=== PATIENT | female | born 1995 | race Caucasian/White ===

== ENCOUNTER 2016-09-15 11:05 | Emergency (ER) | payer MEDICAID ==
--- NOTE | 2016-09-15 12:13 | PD ---
HPI Chief Complaint decreased movement Date Seen: Sep 15, 2016 Time Seen: 11:30 (Baron Loo MD R2) Travel History International Travel<30 Days: No Contact w/Intl Traveler<30Days: No Known Affected Area: No (Baron Loo MD R2) History of Present Illness HPI 21 year old G1 at 25/1 weeks gestation presents with decreased movement that started yesterday. She worked 10 hours yesterday and did not notice any kicks. Today she has not noticed any kicks. She has no vaginal bleeding, loss of fluid, or contractions. has been uncomplicated otherwise. No headache, blurry vision, chest pain, shortness of breath, abdominal pain, calf tenderness. (Baron Loo MD) History Past Medical History Narrative Medical None (Baron Loo MD) Obstetric History Obstetric History G1 25/1 weeks gestation Patient of Dr. Lynn No complications (Baron Loo MD R2) Family History Narrative Family History Healthy (Baron Loo MD) Social History Narrative Social History No drinking, drug use, smoking (Baron Loo MD R2) Allergies-Medications (Allergen,Severity, Reaction): Coded Allergies: No Known Allergies (Unverified , 09/15/16) Narrative Medication vitamins (Baron Loo MD R2) Review of Systems General / Constitutional: Weight Gain, No: Fever, Weight Loss, Chills Eyes: No: Diploplia, Blurred Vision, Visual changes HENT: No: Headaches, Vertigo Cardiovascular: No: Irregular Rhythm, Chest Pain or Discomfort, Tachycardia, Syncope Respiratory: No: Cough, Short of Breath, Wheezing Gastrointestinal: No: Nausea, Vomiting, Diarrhea, Abdominal Pain Genitourinary: No: Urgency, Frequency, Dysuria, Nocturia Musculoskeletal: No: Limited ROM, Weakness Skin: No Rash, No Itching, No Dryness Neurologic: No: Weakness, Dizziness Psychiatric: No: Anxiety, Depression Endocrine: No: Heat Intolerance, Cold Intolerance (Baron Loo MD R2) Physical Exam Narrative GENERAL: Well-nourished, well-developed patient. SKIN: Warm and dry. HEAD: Normocephalic and atraumatic. EYES: No scleral icterus. No injection or drainage. ENT: No nasal drainage noted. Mucous membranes pink. Airway patent. NECK: Supple, trachea midline. No JVD. CARDIOVASCULAR: Regular rate and rhythm without murmurs, gallops, or rubs. RESPIRATORY: Breath sounds equal bilaterally. No accessory muscle use. ABDOMEN/GI: Abdomen soft, non-tender, bowel sounds present, no rebound, no guarding Gravid to 25 weeks size GENITOURINARY: Uterine Contractions: none FHT's: Category: 1 Baseline: 140's Reactive: yes Variability: moderate Decels: none EXTREMITIES: No cyanosis or edema. BACK: Nontender without obvious deformity. No CVA tenderness. NEUROLOGICAL: Awake and alert. Motor and sensory grossly within normal limits. Five out of 5 muscle strength in all muscle groups. Normal speech. (Baron Loo MD R2) Data Data Vital Signs Reviewed: Yes Orders Vital Signs (Adult) .ON ADMISSION (09/15/16 12:01) ^ Labor Status (09/15/16 12:01) Urinalysis - C+S If Indicated (09/15/16 12:01) ^ Non Stress Test (09/15/16 12:01) ^ Hydration (09/15/16 12:01) Diet Regular Basic (09/15/16 Lunch) Vital Signs (Adult) .ON ADMISSION (09/15/16 12:03) ^ Non Stress Test (09/15/16 12:03) ^ Hydration (09/15/16 12:03) (Baron Loo MD R2) MDM Medical Record Reviewed: Yes Interpretation(s) 21 year old G1 at 25/1 weeks gestation with decreased movements. - Non-stress test, monitoring - Hydration - Instructions on kick counts - BPP, NST's if not improved - Close follow up with OB Discussed with Dr. Orlando Narrative Course / MDM 21 year old G1 at 25/1 weeks gestation with decreased movements. NST reactive, POC ultrasound benign. - Instructions on kick count - NST's, BPP's if decreased movement persists - Close follow up with OB (Baron Loo MD R2) Diagnosis Diagnosis: Primary Impression: Decreased movement affecting management of Disposition: 01 DISCHARGE HOME Condition: Good Attestation Patient seen and examined with the resident under direct supervision, agree with the assessment and plan. (Allan Marsh MD) Baron Loo MD R2 Sep 15, 2016 12:13 Allan Marsh MD Sep 15, 2016 17:45
[2016-09-15 12:28] LABS: BACTERIA, URINE FEW /hpf; BLOOD, URINE NEG (NEG); COMMENT (UR) CULT NOT INDICATED; CULTURE IF INDICATED CULT NOT INDICATED; GLUCOSE,URINE NEG (NEG); KETONE, URINE NEG (NEG); MUCUS URINE FEW /lpf (OCC); NITRITE,URINE NEG (NEG); PH, URINE 7.5 (5.0-8.5); SQUAMOUS EPITHELIAL CELL URINE 4 /hpf (0-5); URINE COLOR LIGHT-YELLOW (YELLW/STRAW)
== END 2016-09-15 13:08 | disposition home or self-care (01) ==
LOC: HOBED 11:05
DX: O36.8120 Decreased fetal movements, second trimester, not applicable or unspecified (principal); Z3A.25 25 weeks gestation of pregnancy
CPT/HCPCS: 76815; 81001

== ENCOUNTER → 2016-11-04 | Outpatient (CLI) | payer MEDICAID ==
[~2016-11-04] MED LIST: IBUP-232 PO; PREN29TA PO
== END ==
LOC: HPND 08:58
PROVIDERS: ATTEND Obstetrics & Gynecology
DX: O35.8XX0 Maternal care for other (suspected) fetal abnormality and damage, not applicable or unspecified (principal)
CPT/HCPCS: 76811

== ENCOUNTER 2016-12-08 10:55 | Emergency (ER) | payer MEDICAID ==
--- NOTE | 2016-12-08 11:17 | PD ---
HPI Chief Complaint decreased movement Date Seen: Dec 08, 2016 (Charly Phillips MD R2) Travel History International Travel<30 Days: No Contact w/Intl Traveler<30Days: No (Charly Phillips MD R2) History of Present Illness HPI Ms. Meredith is a 21 yo 37 [address] G[address] patient of [address] Lynn at 37 1/7 weeks (SELINA 2016) who presents with complaint of decreased movement. Patient states that she has only been able to feel her gestation move one time at approximately 8 AM this morning; she is subsequently been resting and performing kick counts but states she has not felt movement. Patient otherwise denies complaints at this time. She reports occasional [place] contractions. Patient denies vaginal bleeding or loss of vaginal fluid. Patient does not report chest pain, shortness of breath, nausea/vomiting, dysuria, fever/chills home or other symptoms at this time. Patient reports benign history with exception of R hydronephrosis early in which has subsequently resolved (per patient's last ultrasound, 11/04/2016). GBS negative Para: 0 : 1 (Charly Phillips MD R2) History Past Medical History Medical History: Denies Significant Hx (Charly Phillips MD R2) Obstetric History Obstetric History G1 Right hydronephrosis early which subsequently resolved (Charly Phillips MD R2) Past Surgical History Surgical History: No Previous Surgery (Charly Phillips MD R2) Family History Family History: Negative (Charly Phillips MD R2) Social History Alcohol Use: No Tobacco Use: No Substance Abuse: No (Charly Phillips MD R2) Allergies-Medications (Allergen,Severity, Reaction): Coded Allergies: No Known Allergies (Unverified , 09/15/16) Review of Systems General / Constitutional: No: Fever, Chills Cardiovascular: No: Chest Pain or Discomfort Respiratory: No: Short of Breath Gastrointestinal: No: Abdominal Pain Genitourinary: No: Dysuria (Charly Phillips MD R2) Physical Exam T 98.4 RRR 17 BP 123/73 HR 87 Narrative GENERAL: Well-nourished, well-developed patient. SKIN: Warm and dry. HEAD: Normocephalic and atraumatic. EYES: No scleral icterus. No injection or drainage. ENT: No nasal drainage noted. Mucous membranes pink. Airway patent. NECK: Supple, trachea midline. No JVD. CARDIOVASCULAR: Regular rate and rhythm without murmurs. No LE edema, normal peripheral perfusion RESPIRATORY: CTAB, normal rate ABDOMEN/GI: Abdomen soft, non-tender, bowel sounds normal. Gravid EXTREMITIES: No cyanosis or edema. NEUROLOGICAL: Awake and alert. Motor and sensory function grossly within normal limits. Uterine Contractions: none, occ irritability FHT's: Category: 1 Baseline: 130 Reactive: Y Variability: Mod Decels:None (Charly Phillips MD R2) [facility] Medical Record Reviewed: Yes Interpretation(s) 21 yo 37 yo G1 patient of [address] Lynn at 37 1/7 weeks (SELINA 12/28/2016) Assessment: -Decreased movement x2-3 hrs -Unremarkable history (hydronephrosis early, resolved) -No contractions on CTG -FHR detected on EFM Plan: -Will continue CTG x20 minutes; based on results we'll reassure patient or assess further with US Narrative Course / MDM CTG was monitored for 30 minutes; heart rhythm reassuring: category 1, baseline 130 with accelerations, moderate variability Impression: Reassuring CTG x >20 min in patient with benign course very reassuring. -Patient reassured regarding stability of her fetus' status; she will continue to monitor kick counts at home and follow up with Dr. Lynn next Monday Case and EFM reviewed with Dr. Hernandez (Charly Phillips MD R2) Diagnosis Diagnosis: Primary Impression: 37 weeks gestation of Additional Impression: Maternal care for decreased movements, antepartum Disposition: 01 DISCHARGE HOME Condition: Stable Patient Instructions: Movement (ED), General Instructions Collaborating MD Comments Patient seen and discussed with Dr Phillips. Agree with management. (Erendira Hernandez MD) Charly Phillips MD R2 Dec 08, 2016 11:17 Erendira Hernandez MD Dec 08, 2016 13:44
== END 2016-12-08 11:58 | disposition home or self-care (01) ==
LOC: HOBED 10:55
DX: O36.8130 Decreased fetal movements, third trimester, not applicable or unspecified (principal); Z3A.37 37 weeks gestation of pregnancy
CPT/HCPCS: 59025

== ENCOUNTER 2016-12-13 22:10 | Inpatient (IN) | payer MEDICAID ==
[~2016-12-13] VITALS: Ht 160 cm; Wt 87.5 kg
[2016-12-13 22:42] VITALS: TEMP 98.6
[2016-12-13 22:50] VITALS: BP 111/64; PULSE 74
[2016-12-13 23:00] VITALS: RESP 18
[2016-12-13] MEDS ORDERED: ZOLPIDEM TARTRATE 5 MG TAB PO PRN (23:00)
[2016-12-13] MEDS ORDERED: NS 1000 ML OTHER PRN (23:00)
[2016-12-13] MEDS ORDERED: MISOPROSTOL 25 MCG SUPP - repeat dose VAGINAL PRN (23:00)
[2016-12-13] MEDS ORDERED: MISOPROSTOL 25 MCG SUPP VAGINAL ONE (23:00)
[2016-12-13] MEDS ORDERED: NS 1000 ML IV PRN (23:15)
[2016-12-13] MEDS ORDERED: LIDOCAINE HCL 1% 50 ML VIAL INFIL PRN (23:15)
[2016-12-13] MEDS ORDERED: LIDOCAINE HCL 1% 50 ML VIAL I-DERMAL PRN (23:15)
[2016-12-13] MEDS ORDERED: OXYTOCIN 30 UNITS 500ML PREMIX IV ONE (23:15)
[2016-12-13] MEDS ORDERED: LACTATED RINGER'S 1000 ML BOLUS IV PRN (23:15)
[2016-12-13] MEDS ORDERED: CITRIC ACID-SODIUM CITRATE LIQ 30 ML UDC PO SCH (23:15)
[2016-12-13] MEDS ORDERED: MINERAL OIL 10 ML VIAL TOPICAL PRN (23:15)
[2016-12-13] MEDS ORDERED: NS 500 ML BOLUS IV PRN (23:15)
[2016-12-13 23:30] LABS: AUTOMATED NEUTROPHIL # 9.2 TH/MM3 (1.8-7.7); BASOPHIL % 0.3 % (0.0-2.0); EOSINOPHIL # 0.1 TH/MM3 (0-0.4); HEMATOCRIT 33.8 % (35.0-46.0); HEMO FLAGS DIFF FINAL; LYMPH % 19.3 % (9.0-44.0); LYMPHOCYTE # 2.5 TH/MM3 (1.0-4.8); MEAN CELL VOLUME 88.4 FL (80.0-100.0); MEAN CORPUSCULAR HEMOGLOBIN 30.7 PG (27.0-34.0); MEAN CORPUSCULAR HGB CONC 34.8 % (32.0-36.0); MONO % 8.4 % (0.0-8.0); PLATELET COUNT 249 TH/MM3 (150-450); RED BLOOD COUNT 3.82 MIL/MM3 (4.00-5.30); RED CELL DISTRIBUTION WIDTH 13.9 % (11.6-17.2)
[2016-12-13] MEDS: LACTATED RINGER'S 1000 ML INJ 1,000 ML IV SCH (23:30)
[2016-12-13 23:37] LABS: BACTERIA, URINE OCC /hpf; BLOOD, URINE MOD (NEG); COMMENT (UR) CULTURE INDICATED; CULTURE IF INDICATED CULTURE INDICATED; GLUCOSE,URINE NEG (NEG); KETONE, URINE NEG (NEG); MUCUS URINE FEW /lpf (OCC); NITRITE,URINE NEG (NEG); SQUAMOUS EPITHELIAL CELL URINE 7 /hpf (0-5); URINE COLOR YELLOW (YELLW/STRAW)
[2016-12-13 23:45] LABS: ANION GAP 12 MEQ/L (5-15); AST (GOT) 18 U/L (15-37); BLOOD UREA NITROGEN 10 MG/DL (7-18); CHLORIDE 106 MEQ/L (98-107); GLOMERULAR FILTRATION RATE 126 ML/MIN (>89); POTASSIUM 3.6 MEQ/L (3.5-5.1); SODIUM (NA) 139 MEQ/L (136-145)
[2016-12-13 23:49] LABS: ALKALINE PHOSPHATASE 140 U/L (45-117); ALT (GPT) 24 U/L (10-53); TOTAL BILIRUBIN ADULT 0.2 MG/DL (0.2-1.0); URIC ACID 4.1 MG/DL (2.6-6.0)
[2016-12-14] VITALS (61 sets, daily range): BP systolic 72–145; BP diastolic 35–95; PULSE 53–168; RESP 16–18; TEMP 97.8–98.7; O2SAT 96–100
[2016-12-14] MEDS: LACTATED RINGER'S 1000 ML IV SCH ×2 (03:29→07:15)
[2016-12-14] MEDS ORDERED: OXYTOCIN 30 UNITS/NS 500ML PREMIX IV SCH (04:00)
[2016-12-14] MEDS: LACTATED RINGER'S 1000 ML INJ 1,000 ML IV SCH (07:29)
[2016-12-14] MEDS ORDERED: PREN29TA PO (08:29)
--- NOTE | 2016-12-14 08:48 | MH ---
cc: ROSA ELENA LYNN DATE OF ADMISSION: 12/13/2016 HISTORY OF PRESENT ILLNESS Ms. Meredith is a 21-year-old white female para 0-0-0-0 at 37+ weeks. She presented to the office for a routine OB visit. She had a 4-pound weight gain in one week. Her blood pressure was increased. Her reflexes were very brisk and she had +1 to +2 proteinuria. Her cervix is really not inducible so she was put in last night for a cervical ripening. I discussed the risks and benefits and alternatives, we got pre-eclamptic labs and she is being admitted for induction of labor due to preeclampsia, mild. PAST OB HISTORY She is para 0-0-0. PAST MEDICAL HISTORY Negative. 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 Her Pap smear was not done secondary to her age. PAST SURGICAL HISTORY Negative. SOCIAL HISTORY She is single, never a smoker. Does not drink, does not take drugs. FAMILY HISTORY Colon cancer in her grandfather and an uncle had brain cancer. ALLERGIES No known drug allergies. CURRENT MEDICATIONS vitamins. PHYSICAL EXAMINATION GENERAL: On physical exam, a well-developed, well-nourished female in no acute distress. VITAL SIGNS: Her blood pressure is 146/96. Her weight is 193. HEENT: Normocephalic, atraumatic. NECK: Supple. Trachea is in the midline. No thyromegaly or adenopathy. CHEST: Clear to auscultation. HEART: Regular rate and rhythm without murmur. ABDOMEN: The abdomen is gravid, nontender. PELVIC EXAM: Her cervix is fingertip, 30% effaced, -3, soft, posterior. EXTREMITIES: No clubbing, cyanosis, edema. DTRs are +3 and quite brisk. ASSESSMENT AND PLAN 1. Intrauterine at 37 weeks and 6 days. 2. Preeclampsia with a non-inducible cervix. We will go ahead and put her in for cervical ripening. 3. Her GBS is negative. R. Rosa Elena Lynn MD RJV/TRAVIS /8:24 AM /8:35 AM
[2016-12-14] MEDS ORDERED: ONDANSETRON HCL 4 MG/2 ML VIAL ONE (09:17)
[2016-12-14] MEDS ORDERED: fentaNYL 2MCG-BUPIV 0.125% INJ 100 ML ONE (09:36)
[2016-12-14] MEDS ORDERED: ePHEDrine/NS 25 MG/5 ML SYR ONE (09:37)
[2016-12-14] MEDS ORDERED: ONDANSETRON HCL 4 MG/2 ML VIAL IV PUSH ONE (09:45)
[2016-12-14] MEDS ORDERED: ONDANSETRON HCL 4 MG/2 ML VIAL IV PUSH PRN (09:45)
[2016-12-14] MEDS ORDERED: DIPHTH/TETANUS/ACEL PERTUSSIS (BOOSTER) 0.5 ML VIAL/PFS IM ONE (16:00)
[2016-12-14] MEDS ORDERED: MEASLES, MUMPS, RUBELLA VACCINE 0.5 ML VIAL SQ ONE (16:00)
--- NOTE | 2016-12-14 16:18 | PD.OB.DELI ---
Delivery Date: Dec 14, 2016 Anesthesia: Epidural Episiotomy: None Vaginal Delivery: Normal Presentation: Occiput anterior Nuchal Cord: None Delayed cord clamping (45 sec): Yes Infant: Male One Minute : 9 Five Minute : 9 Placenta: Spontaneous delivery, Intact, Not Intact, 3 vessel cord Laceration: Perineal laceration, 2 deg Repair: Vicryl running Additional Information Nice delivery of Charanjit. Does have pre eclampsia but will hold off on the magnesium for now as it is mild Discussed this with patient and family. EBL 300cc Annette Lynn MD Dec 14, 2016 16:18
[2016-12-14] MEDS ORDERED: SODIUM CHLORIDE 0.9% FLUSH 10 ML FLUSH IV FLUSH PRN (16:30)
[2016-12-14] MEDS ORDERED: BENZOCAINE 20% TOPICAL SPRAY 60 ML CAN TOPICAL PRN (16:30)
[2016-12-14] MEDS ORDERED: ZOLPIDEM TARTRATE 5 MG TAB PO PRN (16:30)
[2016-12-14] MEDS ORDERED: OXYTOCIN 30 UNITS-500ML PREMIX 500 ML IV ONE (16:30)
[2016-12-14] MEDS ORDERED: oxyCODONE/ACETAMINOPHEN 5 MG/325 MG TAB PO PRN ×2 (16:30)
[2016-12-14] MEDS ORDERED: ALUMINUM/MAGNESIUM/SIMETH 30 ML CUP PO PRN (16:30)
[2016-12-14] MEDS ORDERED: WITCH HAZEL 50%/GLYCERIN 12.5% 40 PAD JAR TOPICAL PRN (16:30)
[2016-12-14] MEDS ORDERED: ACETAMINOPHEN 325 MG TAB PO PRN (16:30)
[2016-12-14] MEDS ORDERED: DOCUSATE SODIUM 50 MG/SENNA 8.6 MG TAB PO PRN (16:30)
[2016-12-14] MEDS ORDERED: ONDANSETRON ODT 4 MG TAB PO PRN (16:30)
[2016-12-14] MEDS: IBUPROFEN 600 MG TAB PO PRN (17:05)
[2016-12-14] MEDS ORDERED: SODIUM CHLORIDE 0.9% FLUSH 10 ML FLUSH IV FLUSH SCH (21:00)
[2016-12-15] MEDS: IBUPROFEN 600 MG TAB PO PRN ×3 (04:24→18:09)
[2016-12-15] MEDS ORDERED: IBUP-232 PO (08:10)
--- NOTE | 2016-12-15 08:11 | HHI.DCPOC ---
Discharge Care Plan Diagnosis: (1) Pre-eclampsia affecting , antepartum (2) Vaginal delivery Report Symptoms to Your Doctor -Temperate above 100.5 degrees -Redness, of incision or excessive or foul smelling drainage -Unusual pain or calf pain -Increased vaginal bleeding -Painful or difficulty urinating -Feelings of extreme sadness or anxiety after 2 weeks Goals to Promote Your Health * To prevent worsening of your condition and complications * To maintain your health at the optimal level Directions to Meet Your Goals Take your medications as prescribed Follow your dietary instruction Follow activity as directed Ensure plenty of rest for recovery Drink fluids for hydration Keep your appointments as scheduled Take your immunizations and boosters as scheduled If your symptoms worsen call your PCP, if no PCP go to Urgent Care Center or Emergency Room Smoking is Dangerous to Your Health. Avoid second hand smoke Call the 24-hour crisis hotline for domestic abuse at Annette Lynn MD Dec 15, 2016 08:11
[2016-12-15] MEDS ORDERED: MULTIVIT/MIN/PREN/FOL AC/IRON PRENATAL TAB PO SCH (09:00)
--- NOTE | 2016-12-15 09:09 | HHI.OB ---
Subjective Post Day: 1 Objective Vitals/I&O Vital Signs Date Time Temp Pulse Resp B/P Pulse Ox O2 Delivery O2 Flow Rate FiO2 12/14/16 19:45 98.7 81 16 111/55 96 12/14/16 18:30 97.9 81 16 115/65 12/14/16 17:30 101/85 12/14/16 17:16 79 12/14/16 17:11 16 12/14/16 17:01 85 111/53 12/14/16 16:51 18 12/14/16 16:49 82 114/58 12/14/16 16:34 16 12/14/16 16:33 88 100/62 12/14/16 16:32 122 12/14/16 16:30 18 12/14/16 16:16 71 113/73 12/14/16 16:15 18 12/14/16 16:15 98.2 12/14/16 16:00 168 132/79 12/14/16 15:15 53 127/80 12/14/16 15:01 66 124/56 12/14/16 14:46 82 120/76 12/14/16 14:30 65 115/78 12/14/16 14:16 69 95/55 12/14/16 14:05 102/64 12/14/16 14:05 69 12/14/16 14:02 81 72/35 12/14/16 14:00 97.8 12/14/16 13:46 69 108/65 12/14/16 13:31 65 111/58 12/14/16 13:15 69 115/75 12/14/16 13:01 66 100/82 12/14/16 12:53 98.0 16 12/14/16 12:46 72 119/68 12/14/16 12:30 65 118/67 12/14/16 12:16 61 97/51 12/14/16 12:00 57 100/47 12/14/16 11:46 58 105/48 12/14/16 11:30 60 116/66 12/14/16 11:16 66 113/75 12/14/16 11:01 65 135/95 12/14/16 11:00 98.0 18 12/14/16 10:59 146 120/71 12/14/16 10:56 67 80/63 12/14/16 10:55 65 12/14/16 10:51 63 122/62 12/14/16 10:50 64 12/14/16 10:45 66 119/56 12/14/16 10:45 62 12/14/16 10:41 65 105/43 12/14/16 10:40 72 12/14/16 10:39 75 100/53 12/14/16 10:36 100/47 12/14/16 10:36 62 12/14/16 10:35 70 100 12/14/16 10:33 69 12/14/16 10:33 113/45 12/14/16 10:31 76 12/14/16 10:31 90/66 12/14/16 10:30 79 100 12/14/16 10:26 90 145/83 12/14/16 10:25 70 100 12/14/16 10:24 67 122/69 12/14/16 10:20 92 100 12/14/16 09:26 97.8 18 12/14/16 09:16 70 98/67 Objective Remarks GENERAL: Well-nourished, well-developed patient. CARDIOVASCULAR: Regular rate and rhythm without murmurs, gallops, or rubs. RESPIRATORY: Breath sounds equal bilaterally. No accessory muscle use. ABDOMEN/GI: Abdomen soft, non-tender. Fundus: Firm, non-tender at umbilicus. GENITOURINARY: Light to moderate bleeding. EXTREMITIES: No cyanosis or slight lower extremity edema, non-tender, without signs of DVT. Medications and IVs Current Medications Medications (Trade) Dose Ordered Sig/Elissa Route Start Time Stop Time Status Last Admin (NS Flush) 2 ml BID IV FLUSH 12/14/16 21:00 (NS Flush) 2 ml UNSCH PRN IV FLUSH 12/14/16 16:30 (Tylenol) 650 mg Q4H PRN PO 12/14/16 16:30 (Motrin) 600 mg Q6H PRN PO 12/14/16 16:30 12/15/16 04:24 (Percocet 5-325 Mg) 1 tab Q4H PRN PO 12/14/16 16:30 (Percocet 5-325 Mg) 2 tab Q4H PRN PO 12/14/16 16:30 (Americaine 20% Top Spr) 1 spray Q4H PRN TOPICAL 12/14/16 16:30 12/15/16 04:24 (Tucks Pads) 1 applic QID PRN TOPICAL 12/14/16 16:30 12/15/16 04:24 (Tahmina-Colace) 2 tab Q12H PRN PO 12/14/16 16:30 (Ambien) 5 mg HS PRN PO 12/14/16 16:30 (Mag-Al Plus Susp Liq) 15 ml Q8H PRN PO 12/14/16 16:30 (Zofran Odt) 4 mg Q6H PRN PO 12/14/16 16:30 (Stuartnatal Plus 3 ) 1 tab DAILY PO 12/15/16 09:00 Assessment/Plan Problem List: (1) Pre-eclampsia affecting , antepartum Plan: bp normal (2) Normal vaginal delivery Plan: routine Assessment and Plan pod #1 pt doing well bp normal pain well managed with mortin breast feeding and bonding well routine Discharge Planning dc home tomorrow Eleni Peters Dec 15, 2016 09:09
[2016-12-15 09:20] VITALS: BP 99/57; PULSE 77; RESP 16; TEMP 98.3
[2016-12-15 20:00] VITALS: BP 122/69; PULSE 72; RESP 16; TEMP 98; O2SAT 98
[2016-12-16 07:55] VITALS: BP 105/62; PULSE 75; RESP 16; TEMP 99
--- NOTE | 2016-12-16 10:05 | HHI.DS ---
Admission Date Dec 13, 2016 at 22:10 Discharge Date: Dec 16, 2016 Admitting Diagnosis 38 WEEK PREGNANCCY PRE-ECLAMPSIA Diagnosis: (1) Pre-eclampsia affecting , antepartum Diagnosis: Principal (2) Normal vaginal delivery Diagnosis: Principal Delivery Date: Dec 14, 2016 Vaginal Delivery: Normal Infant: Male Brief History 38 WEEK IUP PRECLANMPSIA INDUCTION OF LABOR Hospital Course 38 WEEK INDUCTION OF LABOR BP NORMAL AFTER DELIVER ROUTINE Pt Condition on Discharge: Good Discharge Disposition: Discharge Home Discharge Instructions Diet Instructions: As Tolerated, No Restrictions Additional Diet Instructions: Drink at least 8 - 16 oz bottles of water a day Activities You Can Perform: Shower Only-No Bath, Sitz Bath Activities to Avoid: Lifting/Bending, Sexual Activity Additional Activity Instruc.: No driving until off pain medications Do not lift anything heavier than your baby in an infant carrier Follow up Referrals: [facility] PROFESSOR - 2 Weeks @ [facility] New Medications: Ibuprofen (Ibuprofen) 600 Mg Tab 600 MG PO Q6H Pain Management #30 Ref 2 TAB Continued Medications: Vit-Iron Carbonyl ( Plus Iron 29-1 mg) 1 Tab Tab 1 TAB PO DAILY Nutritional Supplement #30 Ref 0 TAB Eleni Peters Dec 16, 2016 10:05
--- NOTE | 2016-12-16 10:08 | HHI.OB ---
Subjective Post Day: 2 Objective Vitals/I&O Vital Signs Date Time Temp Pulse Resp B/P Pulse Ox O2 Delivery O2 Flow Rate FiO2 12/16/16 07:55 99.0 75 16 105/62 12/15/16 20:00 98.0 12/15/16 20:00 72 16 122/69 98 Objective Remarks GENERAL: Well-nourished, well-developed patient. CARDIOVASCULAR: Regular rate and rhythm without murmurs, gallops, or rubs. RESPIRATORY: Breath sounds equal bilaterally. No accessory muscle use. ABDOMEN/GI: Abdomen soft, non-tender. Fundus: Firm, non-tender at umbilicus. GENITOURINARY: Light to moderate bleeding. EXTREMITIES: No cyanosis or edema, non-tender, without signs of DVT. Medications and IVs Current Medications Medications (Trade) Dose Ordered Sig/Elissa Route Start Time Stop Time Status Last Admin (NS Flush) 2 ml BID IV FLUSH 12/14/16 21:00 (NS Flush) 2 ml UNSCH PRN IV FLUSH 12/14/16 16:30 (Tylenol) 650 mg Q4H PRN PO 12/14/16 16:30 (Motrin) 600 mg Q6H PRN PO 12/14/16 16:30 12/15/16 18:09 (Percocet 5-325 Mg) 1 tab Q4H PRN PO 12/14/16 16:30 (Percocet 5-325 Mg) 2 tab Q4H PRN PO 12/14/16 16:30 (Americaine 20% Top Spr) 1 spray Q4H PRN TOPICAL 12/14/16 16:30 12/15/16 04:24 (Tucks Pads) 1 applic QID PRN TOPICAL 12/14/16 16:30 12/15/16 04:24 (Tahmina-Colace) 2 tab Q12H PRN PO 12/14/16 16:30 12/15/16 11:12 (Ambien) 5 mg HS PRN PO 12/14/16 16:30 (Mag-Al Plus Susp Liq) 15 ml Q8H PRN PO 12/14/16 16:30 (Zofran Odt) 4 mg Q6H PRN PO 12/14/16 16:30 (Stuartnatal Plus 3 ) 1 tab DAILY PO 12/15/16 09:00 12/15/16 21:54 Assessment/Plan Problem List: (1) Pre-eclampsia affecting , antepartum Plan: bp normal (2) Normal vaginal delivery Plan: routine Assessment and Plan pod #2 pt doing well bp continue to have normalized pain well managed with mortin routine Discharge Planning dc home today Eleni Peters Dec 16, 2016 10:08
== END 2016-12-16 13:48 | disposition home or self-care (01) | DRG 775 ==
LOC: H2EA 22:10 → H2EB 22:10 → H1EA 12-14 18:18
PROVIDERS: ADMIT Obstetrics & Gynecology; ATTEND Obstetrics & Gynecology
PROC: 10E0XZZ Delivery of Products of Conception, External Approach (ICD-10-PCS; principal; 2016-12-14)
PROC: 0KQM0ZZ Repair Perineum Muscle, Open Approach (ICD-10-PCS; 2016-12-14)
PROC: 00HU33Z Insertion of Infusion Device into Spinal Canal, Percutaneous Approach (ICD-10-PCS; 2016-12-14)
PROC: 3E0R3CZ (ICD-10-PCS; 2016-12-14)
DX: O14.04 Mild to moderate pre-eclampsia, complicating childbirth (principal); O70.1 Second degree perineal laceration during delivery; Z37.0 Single live birth; Z80.8 Family history of malignant neoplasm of other organs or systems; Z80.0 Family history of malignant neoplasm of digestive organs; Z3A.38 38 weeks gestation of pregnancy
CPT/HCPCS: 59025; 80053; 81001; 84550; 85025; 86900; 86901; 87086; 90715; J2405; J2590; J3010; J7120